=== PATIENT | female | born 1960 ===

== ENCOUNTER → 2017-09-28 | Outpatient (CLI) | payer OTHER ==
[2017-09-28 12:22] LABS: Basophils # (auto) 0 uL; Basophils % (auto) 0.5 % (0.0-2.0); Eosinophils # (auto) 0.1 uL; Eosinophils % (auto) 1.6 % (0.0-7.0); Hematocrit 41.1 % (36.0-46.0); Hemoglobin 13.7 g/dL (12.2-16.2); Lymphocytes # (auto) 1.3 uL; Lymphocytes % (auto) 28.4 % (10.0-50.0); Mean Corpuscular Hemoglobin 32.2 pg (28.0-32.0); Mean Corpuscular Hgb Conc. 33.3 g/dL (32.0-36.0); Monocytes # (auto) 0.3 uL; Monocytes % (auto) 5.8 % (0.0-12.0); Neutrophils % (auto) 63.7 % (37.0-80.0); Nucleated Red Blood Cells % 0.2 %; Platelet Count (auto) 382 10^3/uL (140-450); Red Blood Cells 4.24 10^6/uL (4.0-5.20); Red Cell Distribution Width 14.4 % (11.8-14.3); White Blood Cell 4.6 10^3/uL (4.4-10.8)
[2017-09-28 13:12] LABS: Albumin 4.7 g/dL (3.4-5.0); BUN/Creatinine Ratio 19.2; CRP High Sensitivity 0.42 mg/dL (< 0.3); Calcium 9.7 mg/dL (8.5-10.1); Potassium 3.7 mmol/L (3.5-5.1); Total Protein 8.9 g/dL (6.4-8.2); Uric Acid 2.2 mg/dL (2.6-6.0)
[2017-09-29 09:40] LABS: Hepatitis B Surface Antigen Negative (Negative)
[2017-09-29 10:07] LABS: Hepatitis B Core IgM Negative; Hepatitis C Antibody Negative (Negative)
[2017-09-29 10:09] LABS: Hepatitis A Ab IgM Negative
== END | disposition home or self-care (01) ==
LOC: LAB 11:39
DX: E03.9 Hypothyroidism, unspecified (principal); M25.50 Pain in unspecified joint; R76.0 Raised antibody titer; Z79.899 Other long term (current) drug therapy
CPT/HCPCS: 36415; 80053; 80074; 82164; 82306; 84443; 84550; 85025; 85652; 86141; 86200; 86431; 86812

== ENCOUNTER → 2017-10-11 | Outpatient (CLI) | payer OTHER ==
[2017-10-14 14:39] LABS: Hepatitis B Surface Antigen Negative (Negative)
[2017-10-14 14:52] LABS: Hepatitis B Core IgM Negative; Hepatitis C Antibody Negative (Negative)
[2017-10-14 14:54] LABS: Hepatitis A Ab IgM Negative
== END | disposition home or self-care (01) ==
LOC: LAB 08:22
DX: M25.50 Pain in unspecified joint (principal); B19.9 Unspecified viral hepatitis without hepatic coma
CPT/HCPCS: 36415; 80074; 82306; 85652; 86141

== ENCOUNTER → 2023-09-21 | Outpatient (CLI) | payer MEDICAID ==
[2023-09-21 13:55] LABS: Basophils # (auto) 0 10 ^3/uL (0-0.2); Basophils % (auto) 0.3 % (0.0-2.0); Eosinophils # (auto) 0 10 ^3/uL (0-0.8); Eosinophils % (auto) 0.5 % (0.0-7.0); Hematocrit 43.3 % (36.0-46.0); Hemoglobin 14.3 g/dL (12.2-16.2); Lymphocytes # (auto) 1.4 10 ^3/uL (0.4-5.4); Lymphocytes % (auto) 20.1 % (10.0-50.0); Mean Corpuscular Hgb Conc. 32.9 g/dL (32.0-36.0); Mean Corpuscular Volume 91.1 fL (80.0-100.0); Monocytes # (auto) 0.3 10 ^3/uL (0-1.3); Monocytes % (auto) 3.7 % (0.0-12.0); Neutrophils # (auto) 5.3 10 ^3/uL (1.6-8.6); Neutrophils % (auto) 75.4 % (37.0-80.0); Red Blood Cells 4.76 10^6/uL (4.0-5.20); Red Cell Distribution Width 14.5 % (11.8-14.3); White Blood Cell 7.1 10^3/uL (4.4-10.8)
[2023-09-21 14:41] LABS: Alanine Aminotransferase 24 U/L (7-40); Albumin 4.7 g/dL (3.2-4.8); Alkaline Phosphatase 104 U/L (46-116); Anion Gap 7 (5-15); Aspartate Aminotransferase 19 U/L (13-40); CRP High Sensitivity 0.83 mg/dL (<1.0); Carbon Dioxide 29 mmol/L (20-30); Chloride 105 mmol/L (98-107); Glucose 105 mg/dL (74-106); Potassium 4.2 mmol/L (3.5-5.1); Sodium 141 mmol/L (136-145)
[2023-09-21 14:42] LABS: Bilirubin, Total 0.9 mg/dL (0.2-1.0); Total Protein 7.4 g/dL (5.7-8.2)
[2023-09-21 15:02] LABS: BUN/Creatinine Ratio 9.5 (10.0-20.0); Blood Urea Nitrogen 6 mg/dL (9-23)
[2023-09-22 09:23] LABS: Hepatitis B Core IgM Negative; Hepatitis C Antibody Negative (Negative)
[2023-09-23 14:06] LABS: QuantiFERON-TB Gold Plus Negative (Negative)
== END | disposition home or self-care (01) ==
LOC: LAB 12:59
PROVIDERS: ATTEND Internal Medicine Rheumatology
DX: M06.9 Rheumatoid arthritis, unspecified (principal)
CPT/HCPCS: 36415; 80053; 83880; 85025; 86141; 86705; 86803